=== PATIENT | female | born 2000 | race Caucasian/White ===

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

== ENCOUNTER 2021-01-28 23:09 | Emergency (ER) | payer MEDICAID ==
[~2021-01-28] VITALS: Ht 175.3 cm; Wt 81.6 kg
--- NOTE | 2021-01-28 23:58 | NUR ---
PT AMBULATED TO ER WITH C/O MIGRAINES 5 HRS COACH AND HEART PALPITATIONS 2 HRS PTS. A/O X4, NO SOB OR LABORED BREATHING, AFEBRILE. DENIES CP/PRESSURE. NO N/V/D.
--- NOTE | 2021-01-29 00:02 | NUR ---
DR. MITCHELL AT BEDSIDE, MSE IN PROGRESS.
[2021-01-29 00:36] LABS: HEMATOCRIT 37.3 % (31.2-41.9); MEAN CORPUSCULAR HEMOGLOBIN 29.9 uug (24.7-32.8); MEAN CORPUSCULAR VOLUME 88.4 fL (75.5-95.3); PLATELET COUNT (AUTO) 322 K/uL (179-408)
[2021-01-29 00:47] LABS: CREATININE 0.8 mg/dL (0.6-1.3); MAGNESIUM 2.1 mg/dL (1.8-2.4); POTASSIUM 3.7 mmol/L (3.5-5.1)
--- NOTE | 2021-01-29 01:15 | NUR ---
Patient discharged to home in stable condition. Written and verbal after care instructions given. Patient verbalizes understanding of instructions. Stressed follow up or return to ER for worsening s/s. Denies any POWELL/dizziness. No n/v/d. Steady gait. Picked up by mother.
[2021-01-29 01:16] VITALS: BP 122/68
== END 2021-01-29 01:16 | disposition home or self-care (01) ==
LOC: ER 23:10
DX: R00.2 Palpitations (principal)
CPT/HCPCS: 36415; 83735; 85025; 93005; A4663